=== PATIENT | male | born 1945 | race Caucasian/White ===

== ENCOUNTER 2016-09-23 22:12 | Emergency (ER) | payer OTHER ==
--- NOTE | ~2016-09-23 | EKG ---
PATIENT: TRUMAN BAKER UNIT #: [id number] Ventricular Rate: 54 BPM Atrial Rate: 234 BPM QRS Duration: 146 ms Q-T Interval: 512 ms QTC Calculation(Bezet): 485 ms P [place]: 58 degrees Calculated R [place]: -35 degrees Calculated T [place]: -9 degrees Diagnosis Line: Sinus rhythm with paced beats and PVC's Diagnosis Line: Left axis deviation Diagnosis Line: Inferior infarct , age undetermined Diagnosis Line: Abnormal ECG Diagnosis Line: No previous ECGs available Diagnosis Line: Confirmed by LYNN MANZANO MD ([id number]) on Diagnosis Line: 09/25/2016 8:48:11 AM INTERPRETING MD: ALEXANDRA
--- NOTE | ~2016-09-23 | CR58 ---
[facility] A Service of [facility] RADIOLOGY TEXT RESULTS PATIENT: TRUMAN BAKER LOCATION: [place] : [birth year] UNIT #: [id number] AGE: [address]: Cullen Rico MD SEX: M ORDER DR: [id number] [facility]. [place], [place] [address] [id number] MR#: [id number] Acc #: [id number] NAME: TRUMAN BAKER : 1945 SEX: M STUDY DATE/TIME: 09/23/2016 21:55 UNIT: [facility] ROOM: STUDY DESCRIPTION: CR Cervical Spine 2 or 3 Views Attending Physician: Cullen Rico M.D. Ordering Physician: Cullen Rico M.D. Primary Care Physician: No Primary Care Physician MEDICAL IMAGING REPORT This report is preliminary unless electronic signature is present EXAM Cervical spine 3 views HISTORY Neck pain today. No injury. FINDINGS Three views of the cervical spine demonstrate a 2 mm anterior subluxation of C6 relative to C5 and C7. Moderately severe degenerative disc space narrowing from C3-C4 to C6-C7. Mild degenerative facet arthropathy in the upper and lower cervical spine. Severe carotid arterial calcifications in the neck bilaterally. IMPRESSION 1. No acute findings. 2. Moderately severe degenerative disc space narrowing from C3-C4 to C6-C7. 3. A 2 mm anterior subluxation of C6 with relative to C5 and C7. 4. Severe cervical carotid arterial calcifications bilaterally. Dictated by... Brian Zurita M.D. THIS IS AN ELECTRONICALLY VERIFIED REPORT Brian Zurita M.D. at 09/24/2016 11:41 PM DFEdin/bryn TD: 09/23/2016 23:43 JOB #: [id number] MEDICAL IMAGING REPORT [facility] A Service [facility] RADIOLOGY TEXT RESULTS PATIENT: TRUMAN BAKER LOCATION: [place] : [birth year] UNIT #: [id number] AGE: [address]: Cullen Rico MD SEX: M ORDER DR: Page 1 of 1 COPY
== END 2016-09-23 22:45 | disposition home or self-care (01) ==
LOC: CED 22:12
DX: M54.12 Radiculopathy, cervical region (principal); I10 Essential (primary) hypertension
CPT/HCPCS: 72040; 93005; 96372; 99283; J1885